=== PATIENT | female | born 2000 | race Caucasian/White ===

== ENCOUNTER 2020-03-15 18:31 | Emergency (ER) | payer OTHER, MEDICAID ==
[~2020-03-15] VITALS: Ht 154.9 cm; Wt 58.0 kg
[2020-03-15 18:33] VITALS: BP 112/68
== END 2020-03-15 19:04 | disposition home or self-care (01) ==
LOC: ED 18:55
DX: K08.89 Other specified disorders of teeth and supporting structures (principal); R51 Headache; F17.210 Nicotine dependence, cigarettes, uncomplicated
CPT/HCPCS: 99283; 99406